=== PATIENT | female | born 1955 | race African-American/Black ===

== ENCOUNTER 2017-03-16 14:36 | Emergency (ER) | payer OTHER ==
[2017-03-16 15:05] LABS: BILIRUBIN NEGATIVE (NEGATIVE); BLOOD 2+ Ery/uL (NEGATIVE); COLOR YELLOW (YELLOW); GLUCOSE (U) NORMAL (NORMAL); KETONE (U) NEGATIVE (NEGATIVE); LEUKOCYTES 3+ Leu/uL (NEGATIVE); NITRITE NEGATIVE (NEGATIVE); PROTEIN NEGATIVE (NEGATIVE); SPECIFIC GRAVITY <=1.005 (1.001-1.030); UROBILINOGEN 0.2 mg/dL (0.2-1.0)
[2017-03-16 15:06] LABS: CLARITY HAZY (CLEAR)
[2017-03-16 15:07] LABS: BACTERIA 1+; SQUAMOUS EPITHELIAL CELLS RARE; URINARY WBC 20-50
== END 2017-03-16 15:52 | disposition home or self-care (01) ==
LOC: FER 14:36
PROVIDERS: Emergency Medicine
DX: J01.90 Acute sinusitis, unspecified (principal); N30.01 Acute cystitis with hematuria; I10 Essential (primary) hypertension; Z91.041 Radiographic dye allergy status
CPT/HCPCS: 81001; 87076; 87088; 87186

== ENCOUNTER 2017-07-05 13:41 | Emergency (ER) | payer OTHER | END 2017-07-05 16:50 | disposition home or self-care (01) | LOC: FER 13:41 | DX: T78.40XA Allergy, unspecified, initial encounter (principal); I10 Essential (primary) hypertension; Z88.8 Allergy status to other drugs, medicaments and biological substances | CPT/HCPCS: J1030 ==

== ENCOUNTER 2020-11-02 17:27 | Emergency (ER) | payer MEDICARE, OTHER ==
[~2020-11-02 17:27] MED LIST: 24HOUR ALLERGY10 MG PO; 3IN1 COMMODE XX; ASPIRIN CHEWABL81 MG PO; AUGMENTIN 875-1 EACH PO; BACTRIM DS TAB1 EACH PO; COREG 6.25MG6.25 MG PO; DETROL2 MG PO; FAMOTIDINE20 MG PO; LASIX40 MG PO; LIPITOR40 MG PO; MELOXICAM15 MG PO; MOBIC7.5 MG PO; NORVASC5 MG PO; PERCOCET 5-3251 EACH PO; POTASSIUM CHLO10 ME1 PO; UROCIT-K10 MEQ PO; VITAMIN D2000 UNI1 PO; VOLTAREN **OUT50 MG PO; XARELTO10 MG PO; ZANTAC150 MG PO
[2020-11-02 19:02] LABS: BASOPHIL 0.6 % (0-2); EOSINOPHIL 0.6 % (0-7); HCT 42.2 % (37.0-47.0); HGB 12.9 g/dl (12.5-16.0); LYMPHOCYTE 47.7 % (15-48); MCH 27.2 pg (25.0-31.0); MCHC 30.6 g/dL (32.0-36.0); MCV 88.8 fL (78.0-100.0); MONOCYTE 8.2 % (0-12); MPV 9.9 fL (6.0-9.5); NEUTROPHIL 42.6 % (41-80); NRBC 0; PLT 270 K/uL (150-400); RBC 4.75 M/uL (4.20-5.40); RDW 13.4 % (11.5-14.0)
[2020-11-02 19:04] LABS: WBC 3.5 K/uL (4.0-10.5)
[2020-11-02 19:21] LABS: BILIRUBIN NEGATIVE (NEGATIVE); BLOOD 2+ Ery/uL (NEGATIVE); CLARITY CLOUDY (CLEAR); COLOR YELLOW (YELLOW); GLUCOSE (U) NORMAL (NORMAL); LEUKOCYTES TRACE Leu/uL (NEGATIVE); NITRITE POSITIVE (NEGATIVE); PROTEIN 2+ mg/dL (NEGATIVE); SPECIFIC GRAVITY >=1.030 (1.001-1.030); UROBILINOGEN 0.2 mg/dL (0.2-1.0)
[2020-11-02 19:28] LABS: URINARY WBC 20-50
[2020-11-02 19:31] LABS: BACTERIA 2+
[2020-11-02 19:56] LABS: CORONAVIRUS 2019 SARS-COV-2 POSITIVE (NEGATIVE)
[2020-11-02 20:07] LABS: LACTIC ACID 1.1 mmol/L (0.4-1.9)
[2020-11-02 20:15] LABS: ALBUMIN 3.1 g/dL (3.4-5.0); BILIRUBIN - TOTAL 0.3 mg/dL (0.2-1.0); BUN/CREAT RATIO (CALC) 23.8 RATIO; CREATININE 0.84 mg/dL (0.51-0.95); GLOBULIN (CALCULATION) 5.1 g/dL; POTASSIUM 4.2 mmol/L (3.5-5.1); TOTAL PROTEIN 8.2 g/dL (6.4-8.2)
[2020-11-02] MEDS ORDERED: MACROBID100 MG PO (20:28)
[2020-11-02 20:41] LABS: INFLUENZA A NAA NEGATIVE (NEGATIVE)
== END 2020-11-03 00:25 | disposition home or self-care (01) ==
LOC: FER 17:27
PROVIDERS: Nurse Practitioner Family
DX: U07.1 COVID-19 (principal); N39.0 Urinary tract infection, site not specified; I10 Essential (primary) hypertension; Z91.041 Radiographic dye allergy status
CPT/HCPCS: 36415; 71046; 80053; 81001; 83605; 85025; 87076; 87088; 87186; J2405; J7030; J7050; M0239; U0002